=== PATIENT | female | born 1950 | race Caucasian/White ===

== ENCOUNTER → 2017-11-08 | Outpatient (CLI) | payer OTHER ==
[~2017-11-08] MED LIST: B COMPLETE1 EACH PO; CALCIUM 500 WI1 EAC2 PO; EFFEXOR37.5 MG PO; FISH OIL300 MG PO; MULTI-DAY VITA1 EACH PO
== END | disposition home or self-care (01) ==
LOC: RAD 13:38
DX: E04.2 Nontoxic multinodular goiter (principal)
CPT/HCPCS: 93880

== ENCOUNTER → 2017-11-15 | Outpatient (CLI) | payer OTHER | END | disposition home or self-care (01) | LOC: RES 10:13 | DX: R06.02 Shortness of breath (principal); I34.0 Nonrheumatic mitral (valve) insufficiency | CPT/HCPCS: 94060; 94618; 94726; 94729 ==